=== PATIENT | female | born 1970 | race Two or more races ===

== ENCOUNTER 2019-04-05 17:14 | Emergency (ER) | payer MEDICAID ==
[~2019-04-05] VITALS: Ht 160 cm; Wt 73.0 kg
[2019-04-05] MEDS ORDERED: MORPHINE SULFATE 4 MG/ML CPJ (NOT FOR IM USE) IV STA (23:07)
[2019-04-05] MEDS ORDERED: SODIUM CHLORIDE 0.9% 1,000 ML IV ONE (23:07)
[2019-04-05] MEDS ORDERED: KETOROLAC 30MG/ML VIAL IV STA (23:07)
[2019-04-05] MEDS ORDERED: ONDANSETRON HCL 4MG/2ML INJ IV STA (23:07)
[2019-04-05] MEDS ORDERED: TAMSULOSIN HCL 0.4MG SR CAPSULE PO STA (23:07)
[2019-04-05 23:08] LABS: CLARITY URINE CLEAR (CLEAR); COLOR URINE YELLOW (YELLOW); KETONES URINE NEGATIVE (NEGATIVE); LEUKOCYTE ESTERASE URINE TRACE (NEGATIVE); NITRITE URINE NEGATIVE (NEGATIVE); OCCULT BLOOD URINE 1+ (NEGATIVE); PH URINE 5.5 (4.5-8.0); PROTEIN URINE NEGATIVE (NEGATIVE); SPECIFIC GRAVITY URINE 1.009 (1.005-1.030); UROBILINOGEN URINE 0.2 E.U./dL (0.2-1.0)
[2019-04-05 23:47] LABS: CHLORIDE 109 mEq/L (98-107)
[2019-04-05 23:49] LABS: BASOPHILS % 0.9 % (0.0-2.0); EOSINOPHILS % 0.7 % (0.0-5.0); HEMATOCRIT. 39.9 % (36.0-48.0); HEMOGLOBIN. 13.3 g/dL (12.0-16.0); LYMPHOCYTES % 28.3 % (20.0-50.0); MEAN CORPUSCULAR HEMOGLOBIN 27.5 pg (28.0-32.0); MEAN CORPUSCULAR VOLUME 82.6 fL (81.0-99.0); MEAN PLATELET VOLUME 7.7 fl (7.4-10.4); MONOCYTES % 5.9 % (2.0-8.0); NEUTROPHILS % 64.2 % (40.0-76.0); PLATELET 290 x1000/uL (130-400); RED BLOOD CELL COUNT 4.83 mill/uL (4.2-5.4)
[2019-04-06 00:04] LABS: INR 0.9; PROTHROMBIN TIME 9.5 sec (9.6-11.0)
[2019-04-06] MEDS ORDERED: LEVOFLOXACIN 500MG TABLET PO ONE (01:00)
[2019-04-06 02:00] VITALS: BP 138/77
== END 2019-04-06 02:00 | disposition home or self-care (01) ==
LOC: ER 17:14
DX: N13.30 Unspecified hydronephrosis (principal); K76.0 Fatty (change of) liver, not elsewhere classified; G35 Multiple sclerosis; Z87.828 Personal history of other (healed) physical injury and trauma; Z98.890 Other specified postprocedural states
CPT/HCPCS: 36415; 76770; 80053; 81003; 83690; 84484; 85025; 85610; 85730; 96374; 96375; 99284; J1885; J2270; J2405; J7030; Z7610

== ENCOUNTER 2019-10-04 18:04 | Emergency (ER) | payer MEDICAID ==
[~2019-10-04] VITALS: Ht 160 cm; Wt 75.0 kg
[2019-10-04 18:23] VITALS: BP 152/77
[2019-10-04 19:02] LABS: CLARITY URINE CLEAR (CLEAR); COLOR URINE YELLOW (YELLOW); KETONES URINE NEGATIVE (NEGATIVE); LEUKOCYTE ESTERASE URINE 1+ (NEGATIVE); NITRITE URINE NEGATIVE (NEGATIVE); OCCULT BLOOD URINE 1+ (NEGATIVE); PROTEIN URINE NEGATIVE (NEGATIVE); SPECIFIC GRAVITY URINE 1.006 (1.005-1.030); UROBILINOGEN URINE 0.2 E.U./dL (0.2-1.0)
== END 2019-10-04 19:21 | disposition home or self-care (01) ==
LOC: ER 18:04
DX: N39.0 Urinary tract infection, site not specified (principal); F17.210 Nicotine dependence, cigarettes, uncomplicated
CPT/HCPCS: 81003; 81025; 99283

== ENCOUNTER 2024-06-20 16:15 | Emergency (ER) | payer MEDICAID, OTHER ==
[~2024-06-20] VITALS: Ht 160 cm; Wt 72.1 kg
[2024-06-20 16:20] VITALS: O2SAT 97
[2024-06-20] MEDS ORDERED: AMOX1TAB16 MT (17:07)
[2024-06-20 17:25] LABS: CLARITY URINE CLEAR (CLEAR); COLOR URINE YELLOW (YELLOW); GLUCOSE URINE NEGATIVE (NEGATIVE); KETONES URINE NEGATIVE (NEGATIVE); LEUKOCYTE ESTERASE URINE 1+ (NEGATIVE); NITRITE URINE NEGATIVE (NEGATIVE); OCCULT BLOOD URINE NEGATIVE (NEGATIVE); PROTEIN URINE NEGATIVE (NEGATIVE); SPECIFIC GRAVITY URINE 1.019 (1.005-1.030)
[2024-06-20] MEDS: AMOXICILLIN/POTASSIUM CLAVULANATE 875/125MG TAB PO ONE (17:34)
[2024-06-20 17:35] VITALS: BP 130/70; PULSE 80; RESP 15; TEMP 98.4
[2024-06-20 17:45] LABS: BACTERIA URINE 2+; RBC URINE 0-2 /hpf (0-2); SQUAMOUS EPITHELIAL CELL URINE FEW /lpf (RARE/1+)
== END 2024-06-20 17:36 | disposition home or self-care (01) ==
LOC: ER 16:15
DX: N39.0 Urinary tract infection, site not specified (principal); R10.9 Unspecified abdominal pain; Z98.890 Other specified postprocedural states
CPT/HCPCS: 81003; 99283

== ENCOUNTER 2024-07-31 20:28 | Emergency (ER) | payer OTHER ==
[~2024-07-31] VITALS: Ht 160 cm; Wt 73.0 kg
[2024-07-31] MEDS: KETOROLAC 15MG/ML VIAL IV ONE (01:09)
[2024-07-31] MEDS: METOCLOPRAMIDE HCL 10MG/2ML VIAL IV ONE (01:09)
[~2024-07-31 20:28] MED LIST: AMOX1TAB16 MT
[2024-07-31 20:48] VITALS: TEMP 98.6; O2SAT 97
[2024-08-01] MEDS: METOCLOPRAMIDE HCL 10MG/2ML VIAL IV NR (01:01)
[2024-08-01] MEDS: DEXAMETHASONE 10 MG/ML VIAL IV NR (01:01)
[2024-08-01] MEDS: KETOROLAC 15MG/ML VIAL IV NR (01:05)
[2024-08-01] MEDS: SODIUM CHLORIDE 0.9% 1,000 ML IV ONE (01:09)
[2024-08-01] MEDS: DEXAMETHASONE 10 MG/ML VIAL IV ONE (01:09)
[2024-08-01 03:36] VITALS: BP 123/73; PULSE 70; RESP 16; O2SAT 98
== END 2024-08-01 03:37 | disposition home or self-care (01) ==
LOC: ER 20:28
DX: G43.909 Migraine, unspecified, not intractable, without status migrainosus (principal); Z87.440 Personal history of urinary (tract) infections
CPT/HCPCS: 99284; 96374; 96375; 96361; J7030; J1100; J1885; J2765

== ENCOUNTER 2024-10-04 13:22 | Emergency (ER) | payer OTHER ==
[~2024-10-04] VITALS: Ht 160 cm; Wt 72.0 kg
[2024-10-04 13:31] VITALS: O2SAT 93
[2024-10-04] MEDS ORDERED: METR-167 MT (16:39)
[2024-10-04 16:47] VITALS: BP 122/71; PULSE 74; RESP 16; TEMP 36.83628; O2SAT 93
== END 2024-10-04 16:47 | disposition home or self-care (01) ==
LOC: ER 13:22
DX: N76.0 Acute vaginitis (principal); B96.89 Other specified bacterial agents as the cause of diseases classified elsewhere; L27.0 Generalized skin eruption due to drugs and medicaments taken internally
CPT/HCPCS: 87210; 99283